=== PATIENT | male | born 1945 | race African-American/Black ===

== ENCOUNTER 2020-01-15 13:59 | Inpatient (IN) | payer OTHER ==
[~2020-01-15] VITALS: Ht 185.4 cm; Wt 93.1 kg
[2020-01-15] VITALS (24 sets, daily range): BP systolic 96–128; BP diastolic 49–70
[2020-01-15 14:20] LABS: BE(vivo) -11.8 mmol/L (-2 to +3); HCO3 15.5 mmol/L (22.0-26.0); PCO2 40.1 mmHg (35.0-45.0); PO2 100.2 mmHg (80.0-100.0); sO2 96.3 % (92.0-98.0)
[2020-01-15 14:21] LABS: pH 7.206 (7.360-7.450)
[2020-01-15 14:54] LABS: URINE BILIRUBIN NEGATIVE (Negative); URINE BLOOD 2+ (Negative); URINE CLARITY CLEAR; URINE COLOR YELLOW; URINE GLUCOSE-RANDOM* NEGATIVE (Negative); URINE KETONES NEGATIVE (Negative); URINE LEUKOCYTES-REFLEX NEGATIVE (Negative); URINE NITRITE-REFLEX NEGATIVE (Negative); URINE PROTEIN (DIPSTICK) NEGATIVE (Negative); URINE SPECIFIC GRAVITY <= 1.005 (1.005-1.035); URINE UROBILINOGEN 0.2 E.U./dl (0.2-1.0)
[2020-01-15] MEDS ORDERED: NORCO 5-325 TA1 EAC1 PO (14:56)
[2020-01-15] MEDS ORDERED: AMITRIPTYLINE H10 M1 PO (14:56)
[2020-01-15] MEDS ORDERED: LISINOPRIL40 MG PO (14:57)
[2020-01-15] MEDS ORDERED: CARVEDILOL12.5 MG PO (14:58)
[2020-01-15] MEDS ORDERED: DOXAZOSIN MESYLA4 MG PO (14:59)
[2020-01-15] MEDS ORDERED: ALPRAZOLAM 0.0.25 M1 PO (15:01)
[2020-01-15] MEDS ORDERED: AMOXICILLIN 50500 M1 PO (15:01)
[2020-01-15 15:02] LABS: AMP/METHAMP Negative (Negative); BARBITURATES Negative (Negative); BENZODIAZEPINES POSITIVE (Negative); COCAINE Negative (Negative); METHADONE Negative (Negative); OPIATES POSITIVE (Negative); PCP Negative (Negative)
[2020-01-15 15:13] LABS: ABSOLUTE NEUTROPHILS 4.7 thou/uL (1.4-8.2); BASOPHILS 0.4 % (0.0-2.0); EOSINOPHILS 0.1 % (0.0-3.0); HEMATOCRIT 42.9 % (42.0-52.0); HEMOGLOBIN 13.7 gm/dL (14.0-18.0); LYMPHOCYTES 17.4 % (24.0-44.0); MCH 28.2 pg (26.0-34.0); MCV 88.1 fL (80.0-100.0); MONOCYTES 4.9 % (1.0-8.0); PLATELET COUNT 142 thou/uL (150-400); POLYS 77.2 % (36.0-66.0); RBC 4.87 mil/uL (4.50-6.00); RDW 14.8 % (10.5-14.5); WBC 6.1 thou/uL (4.0-11.0)
[2020-01-15 15:18] LABS: BACTERIA-REFLEX None Seen /HPF (None Seen); CASTS None Seen /LPF (None Seen); CRYSTALS None Seen /LPF (None Seen); SQUAMOUS None Seen /LPF (0-3); URINE RBC 0-2 Rare /HPF (0-2); URINE WBC-REFLEX 0-5 Rare /HPF (0-5)
[2020-01-15 15:28] LABS: ANION GAP 17 mmol/L (7-16); BUN 28 mg/dL (7-18); CHLORIDE 95 mmol/L (98-107); CO2 21 mmol/L (21-32); CREATININE 2.7 mg/dL (0.7-1.3); GLUCOSE 92 mg/dL (74-106); POTASSIUM 4.5 mmol/L (3.5-5.1); SODIUM 133 mmol/L (136-145)
[2020-01-15 15:38] LABS: MAGNESIUM 2.2 mg/dL (1.8-2.4); TROPONIN-I <0.06 ng/mL (<0.06)
[2020-01-15 15:54] LABS: SALICYLATE < 2.8 mg/dL (2.8-20.0)
[2020-01-15 16:10] LABS: BE(vivo) -10.9 mmol/L (-2 to +3); HCO3 16.7 mmol/L (22.0-26.0); PCO2 43.6 mmHg (35.0-45.0); PO2 371.3 mmHg (80.0-100.0); pH 7.201 (7.360-7.450); sO2 99.7 % (92.0-98.0)
--- NOTE | 2020-01-15 21:15 | NUR ---
ASSUMED CARE OF PATIENT AT 1900 01/14. PATIENT WAS RECENTLY TRANSFERED TO ICU FROM ER. PATIENT WAS ON NARCAN GTT AND BIPAP. DR LOCKHART CONSULTED. CAT RESPONDING ONLY TO PAINFUL STIMULI WHEN FIRST ASSESSED. DR LOCKHART NOW AT BEDSIDE.
[2020-01-16] VITALS (50 sets, daily range): BP systolic 105–153; BP diastolic 50–81
--- NOTE | 2020-01-16 05:03 | NUR ---
PATIENT A&OX4. NARCAN GTT TURNED OFF. WHEN ASKING PATIENT HOW HE ENDED UP IN THE HOSPITAL HE SAID HE TOOK TOO MANY PILLS. THIS RN ASKED PATIENT IF HE TOOK TOO MANY PILLS ON PURPOSE OR ACCIDENT. PATIENT ADMITS TO TAKING THE PILLS ON PURPOSE TO HARM HIMSELF. DR. LOCKHART NOTIFIED. ORDERS OBTAINED TO CONSULT DR. DIAZ.
[2020-01-16 05:26] LABS: HEMATOCRIT 41.6 % (42.0-52.0); HEMOGLOBIN 13.4 gm/dL (14.0-18.0); MCH 28.4 pg (26.0-34.0); MCHC 32.3 g/dL (28.0-37.0); MCV 87.9 fL (80.0-100.0); RBC 4.73 mil/uL (4.50-6.00); RDW 14.7 % (10.5-14.5); WBC 5.9 thou/uL (4.0-11.0)
[2020-01-16 05:34] LABS: CALCIUM 7.3 mg/dL (8.5-10.1); POTASSIUM 4.2 mmol/L (3.5-5.1)
[2020-01-16 05:54] LABS: CREATININE 1.6 mg/dL (0.7-1.3)
--- NOTE | 2020-01-16 08:06 | EKG ---
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[place] : 1945 Requested By: Berry Neal Order Number: [id number] MD: Adria Lindsey Measurements Intervals [place] Rate: 69 P: 24 ME: 231 QRS: -50 QRSD: 122 T: 9 QT: 445 QTc: 477 Interpretive Statements Sinus rhythm Prolonged ME interval Nonspecific IVCD with LAD No previous ECG available for comparison Electronically Signed On 01-16-2020 8:05:40 PATIENT FINANCIAL SPECIALIST by Adria Lindsey [email or web address] <ELECTRONICALLY SIGNED> By: Adria Lindsey MD, FACC 01/16/20 0805 1401 1401 Adria Lindsey MD, [facility] /EPI
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
--- NOTE | 2020-01-16 15:31 | NUR ---
PT IS ALERT AND ORIENTED X4. WEARING BIPAP OXYGEN SATURATION IS 100 PERCENT. CAME TO VISIT. EXPLAIN TO HER PT IS A ONE TO ONE SUCIDE PATIENT. HE ADMITED TO TAKING TOO MANY PILLS AND FEELS DEPRESSED. PSYCH CONSULT PLACED FOR PATIENT. LUNGS ARE CLEAR TO DIMINISHED.NPO SLEEPY TODAY. SINUS RHTYM ON THE MONITOR. ABDOMEN IS ROUND CABRAL TO DD WITH YELLOW URINE PRESENT. DENIES ANY PAIN. WILL CONTINUE TO MONITOR AND ASSESS PER NURSING. AND PROGRESS TOWARDS GOALS
[2020-01-17] VITALS (13 sets, daily range): BP systolic 117–150; BP diastolic 50–79
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
--- NOTE | 2020-01-17 12:15 | NUR ---
PT TRANSFERED VIA ON TO 4W. REPORT CALLED. NO BELONGINGS, CONFIRMED WITH PT THAT SHE HAS PT GLASSES AND PHONE. WILL BRING GLASSES UP HERE AROUND 1400.
--- NOTE | 2020-01-17 13:58 | NUR ---
Received pt from ICU, currently on SI, 1:1 provided. Pt is pleasant and cooperative. Suicide precautins in place, hydration promoted. POC followed.
--- NOTE | 2020-01-17 14:14 | NUR ---
1230-Transferred pt via w/c to [facility].Room scrubbed. No belongings.Molly carbajal pt.Care turned over to RICKEY Elizalde.--VW
[2020-01-18 07:40] VITALS: BP 147/79
--- NOTE | 2020-01-18 08:02 | NUR ---
PROGRESS PT A/O X4 NO BEHAVIORS NOTED PATIENT CALM, PLEASANT AND DENIES ANY FEELINGS OF SADNESS OR ANY INTENT TO HARM HIMSELF. IV ANTIBIOTICS GIVEN ORDERED. PT UP WITH SBA GAIT SLIGHT UNSTEADY. WOULD LIKE TO GET OOB AND AMBULATE TODAY. CONTINUE TO MONITOR.
--- NOTE | 2020-01-18 10:39 | NUR ---
PT IS D/C FROM OT TODAY. PT/OTL DISCUSSED, PT DOES NOT BELIEVE HE NEEDS, AND IS UP AD MARK IN ROOM WITHOUT ASSISTIVE DEVICE TO TOILET, TAKE SPONGE BATH, ETC.
[2020-01-18 11:16] LABS: ABSOLUTE NEUTROPHILS 4.9 thou/uL (1.4-8.2); BASOPHILS 0.4 % (0.0-2.0); EOSINOPHILS 3.5 % (0.0-3.0); HEMATOCRIT 37.2 % (42.0-52.0); HEMOGLOBIN 12.1 gm/dL (14.0-18.0); LYMPHOCYTES 18.1 % (24.0-44.0); MCHC 32.6 g/dL (28.0-37.0); MCV 86.1 fL (80.0-100.0); MONOCYTES 5.6 % (1.0-8.0); PLATELET COUNT 126 thou/uL (150-400); POLYS 72.4 % (36.0-66.0); RBC 4.32 mil/uL (4.50-6.00); RDW 14.2 % (10.5-14.5); WBC 6.8 thou/uL (4.0-11.0)
[2020-01-18 11:33] LABS: ALBUMIN 3.1 g/dL (3.4-5.0); CALCIUM 8.6 mg/dL (8.5-10.1)
--- NOTE | 2020-01-18 16:38 | NUR ---
PHYSICIANS INDICATED THAT PT IS MEDICALLY STABLE TO HAVE TRANSFER INITIATED TO INPATIENT PSYC. CHART COPY ORDRED. [facility] FORM COMPLETED WELL TRANSFER FORM ALL IN PAN DUMPER. CM TO FAX REFERRAL AND IT WILL BE LEFT IN WALL PAN DUMPER FOR NURSING STAFF TO FOLLOW UP ON. CM TO FOLLOW INDICATED WITH DC PLANNING.
[2020-01-18 19:55] VITALS: BP 148/93
--- NOTE | 2020-01-18 20:01 | NUR ---
Assumed pt care this am VS stable. POC [id number] no signs or verbalizations of distres noted. SI precautions in place, 1:[address] Pt stable to dc and go to inpt psych, [facility]. POC followed, no signs or verbalizations of distress noted, at the bedside.
[2020-01-19 04:44] VITALS: BP 152/83
--- NOTE | 2020-01-19 05:51 | NUR ---
Pt. rested quietly at intervals during the night when checked on during frequent rounds. No behavioral problems. Pt. has been pleasant and cooperative. Sitter providing 1:1 all shift.
[2020-01-19 07:20] VITALS: BP 140/72
[2020-01-19 11:18] VITALS: BP 140/72
--- NOTE | 2020-01-19 15:41 | NUR ---
Assumed pt care this am, VS stable still on 1:1 suicide precautions. POC followed with no signs or verbalizations of distress have been noted. [facility], Dr. Perla called admitting [facility]. Tried to call report, no answer left call back number. Transportation coordinated. IV removed, pt has just left via transport. INformed the . Pt is now dc.
== END 2020-01-19 15:46 | DRG 917 ==
LOC: ER 13:59 → EROBS 16:44 → ICU 16:44 → 4W 01-17 13:42
PROVIDERS: Emergency Medicine; Psychiatry & Neurology Psychiatry; ADMIT Hospitalist
PROC: 5A09357 Assistance with Respiratory Ventilation, Less than 24 Consecutive Hours, Continuous Positive Airway Pressure (ICD-10-PCS; principal; 2020-01-15)
PROC: 5A09357 Assistance with Respiratory Ventilation, Less than 24 Consecutive Hours, Continuous Positive Airway Pressure (ICD-10-PCS; 2020-01-16)
PROC: 5A09357 Assistance with Respiratory Ventilation, Less than 24 Consecutive Hours, Continuous Positive Airway Pressure (ICD-10-PCS; 2020-01-17)
DX: T40.692A Poisoning by other narcotics, intentional self-harm, initial encounter (principal); J96.01 Acute respiratory failure with hypoxia; N17.9 Acute kidney failure, unspecified; E87.2 Acidosis; M62.82 Rhabdomyolysis; F33.2 Major depressive disorder, recurrent severe without psychotic features; F41.9 Anxiety disorder, unspecified; D86.9 Sarcoidosis, unspecified; Z96.649 Presence of unspecified artificial hip joint; Z96.659 Presence of unspecified artificial knee joint; I27.20 Pulmonary hypertension, unspecified; M54.9 Dorsalgia, unspecified; G89.29 Other chronic pain; T14.91XA Suicide attempt, initial encounter; F10.21 Alcohol dependence, in remission; F11.90 Opioid use, unspecified, uncomplicated; T51.8X2A Toxic effect of other alcohols, intentional self-harm, initial encounter; Z87.891 Personal history of nicotine dependence; T43.012A Poisoning by tricyclic antidepressants, intentional self-harm, initial encounter; Z79.2 Long term (current) use of antibiotics; Z79.899 Other long term (current) drug therapy
CPT/HCPCS: 10047; 10078